=== PATIENT | female | born 1985 | race Caucasian/White ===

== ENCOUNTER 2020-02-14 08:28 | Outpatient (CLI) | payer MEDICAID ==
[2020-02-14 08:55] LABS: Hemoglobin 14.2 g/dL (12.0-16.0); Mean Corpuscular HGB CONC 33.8 g/dL (32.0-36.0); Mean Corpuscular Hemoglobin 30.8 pg (27.0-31.0); Mean Corpuscular Volume 91.1 fL (78.0-98.0); Mean Platelet Volume 6.8 fL (7.4-10.4); Platelet Count 270 thou/uL (130-400); RBC Distribution Width 11.2 % (11.5-14.5); Red Blood Cell (RBC) Count 4.61 mill/uL (4.20-5.40); White Blood Cell (WBC) Count 9.6 thou/uL (4.8-10.8)
[2020-02-14 09:19] LABS: ALT (SGPT) 21 U/L (8-55); AST (SGOT) 17 U/L (5-34); Albumin 4.3 g/dL (3.5-5.0); Alkaline Phosphatase 82 U/L (40-110); Anion Gap 11 mmol/L (10-20); BUN (Urea Nitrogen) 10 mg/dL (7.0-18.7); Bilirubin, Total 0.3 mg/dL (0.2-1.2); CRP (Inflammatory) Less than 0.50 mg/dL (= or < 0.5); Calc. Creatinine Clearance 0 mL/min (70-130); Calcium 9.4 mg/dL (7.8-10.44); Carbon Dioxide 27 mmol/L (22-29); Chloride 106 mmol/L (98-107); Estimated GFR-MDRD 85; Glucose 85 mg/dL (70-105); Potassium 4.3 mmol/L (3.5-5.1); Protein, Total 7.3 g/dL (6.0-8.3); Sodium 140 mmol/L (136-145)
[2020-02-14] MEDS ORDERED: Iopamidol 370 76% 100 ML VIAL ONE (10:34)
--- NOTE | 2020-02-14 12:22 | CT ---
EXAM: CT Abdomen Pelvis W WO con PROVIDED CLINICAL HISTORY: Chronic diarrhea. Worsening abdominal pain. COMPARISON: None FINDINGS: This examination was performed as an enterography protocol. The lung bases are clear. There is an irregular focus of enhancement seen posterior aspect of the liver seen on arterial phase of imaging which is not seen on portal venous phase and is likely related to transient hepatic arterial difference. The liver otherwise demonstrates a normal CT appearance. The spleen, pancreas, bilateral adrenal glands, kidneys, abdominal aorta, urinary bladder, and uterus demonstrate a normal CT appearance. There are focal areas of stricturing seen within loops of small bowel in the lower mid abdomen with m inimal adjacent infiltration of the fat immediately adjacent to the bowel in these regions. Bowel wall in these regions also appears mildly thickened. Findings may be related to inflammatory bowel di sease. The colon is distended and has a normal appearance. No free fluid, fluid collection, or lymphadenopathy seen in the abdomen or pelvis. Fat-containing umbilical hernia is seen. IMPRESSION: There are focal areas of stricturing and slight thickening of the bowel wall seen involving loops of the distal ileum in the mid and lower abdomen with adjacent minimal reticulation of the fat adjacent to these loops of bowel. Findings may be related to inflammatory bowel disease.
== END 2020-02-14 08:29 | disposition home or self-care (01) ==
LOC: CT 08:28
PROVIDERS: ATTEND Internal Medicine Gastroenterology
DX: K52.9 Noninfective gastroenteritis and colitis, unspecified (principal)
CPT/HCPCS: 36415; 74178; 80053; 85027; 86140; Q9967

== ENCOUNTER 2020-04-08 08:53 | Day surgery (SDC) | payer MEDICAID ==
[~2020-04-08 08:53] MED LIST: Acetaminophen 500 MG TAB PO PRN; INFLIXIMAB DYYB IV SCH; INFLIXIMAB DYYB IVPB SCH; SODIUM CHLORIDE 0.9% IV SCH; SODIUM CHLORIDE 0.9% IVPB SCH
[2020-04-08] MEDS ORDERED: diphenhydrAMINE 25 MG CAP PO PRN (08:54)
[2020-04-08] MEDS ORDERED: Sodium Chloride 0.9% 20 ML ONE (08:56)
[2020-04-08 09:43] VITALS: BP 124/82; TEMP 98.2
== END 2020-04-08 11:57 | disposition home or self-care (01) ==
LOC: ONC/OP 08:53
PROVIDERS: ATTEND Internal Medicine Gastroenterology
DX: K50.00 Crohn's disease of small intestine without complications (principal); K52.9 Noninfective gastroenteritis and colitis, unspecified; K21.9 Gastro-esophageal reflux disease without esophagitis; F41.9 Anxiety disorder, unspecified; F32.9 Major depressive disorder, single episode, unspecified; Z79.899 Other long term (current) drug therapy
CPT/HCPCS: 96413; 96415; J7050; Q0163; Q5103

== ENCOUNTER 2020-05-17 17:30 | Emergency (ER) | payer OTHER ==
[2020-05-17 18:51] LABS: #Basophils 0.1 thou/uL (0.0-0.2); #Eosinphils 0.1 thou/uL (0.0-0.7); #Lymphocytes 3.2 thou/uL (1.20-3.40); #Monocytes 0.7 thou/uL (0.11-0.59); #Neutrophils 3.7 thou/uL (1.40-6.50); %Basophils 1.5 % (0.0-1.0); %Eosinophils 1.4 % (0.0-10.0); %Lymphocytes 41.3 % (21.0-51.0); %Neutrophils 46.9 % (42.0-75.0); Hemoglobin 14.3 g/dL (12.0-16.0); Mean Corpuscular Hemoglobin 31.4 pg (27.0-31.0); Mean Corpuscular Volume 89.7 fL (78.0-98.0); Mean Platelet Volume 7.2 fL (7.4-10.4); Platelet Count 226 thou/uL (130-400); RBC Distribution Width 11.1 % (11.5-14.5); Red Blood Cell (RBC) Count 4.56 mill/uL (4.20-5.40); White Blood Cell (WBC) Count 7.8 thou/uL (4.8-10.8)
[2020-05-17] MEDS ORDERED: hydrOXYzine 25 MG TAB ONE (19:03)
[2020-05-17 19:12] LABS: BHCG - Serum Negative (NEGATIVE); Pregs Control Background? CLEAR/WHITE (CLR/WHITE); Pregs Control Bar Appear? YES (CONTROL BAR)
[2020-05-17 19:15] LABS: ALT (SGPT) 15 U/L (8-55); AST (SGOT) 17 U/L (5-34); Albumin 4.6 g/dL (3.5-5.0); Alkaline Phosphatase 71 U/L (40-110); Anion Gap 14 mmol/L (10-20); BUN (Urea Nitrogen) 8 mg/dL (7.0-18.7); Bilirubin, Total 0.5 mg/dL (0.2-1.2); CK (CPK) 66 U/L (29-168); Calc. Creatinine Clearance 0 mL/min (70-130); Calcium 9.2 mg/dL (7.8-10.44); Carbon Dioxide 24 mmol/L (22-29); Chloride 105 mmol/L (98-107); Estimated GFR-MDRD 84; Glucose 96 mg/dL (70-105); Magnesium 1.8 mg/dL (1.6-2.6); Protein, Total 7.6 g/dL (6.0-8.3); Sodium 139 mmol/L (136-145)
[2020-05-17 19:18] LABS: Bilirubin Negative (Negative); Blood, Urine Negative (Negative); Clarity Clear (Clear); Glucose, Urine (Dipstick) Normal (Negative); Ketone, Urine 10 mg/dL (Negative); Leukocyte Negative Leu/uL (Negative); Nitrite Negative (Negative); Protein, Urine (Dipstick) Negative (Neg-Trace); Urobilinogen Normal mg/dL (Less than 2); pH, Urine 6.5 (5.0-9.0)
[2020-05-17 19:30] LABS: Amphetamine Not Detected (NotDetected); Barbiturates Screen Not Detected (NotDetected); Benzodiazepine Screen Not Detected (NotDetected); Cocaine Metabolite Screen Not Detected (NotDetected); Medtox Control Line Valid? VALID (VALID); Medtox Reader # READER 1; Methadone Not Detected (NotDetected); Methamphetamine Not Detected (NotDetected); Opiate Screen Detected (NotDetected); Oxycodone Screen Not Detected (NotDetected); Phencyclidine (PCP) Not Detected (NotDetected); THC/Cannabinoid Screen Detected (NotDetected); Tricyclic Screen Not Detected (NotDetected)
--- NOTE | 2020-05-17 19:30 | CT ---
CT OF BRAIN PERFORMED WITHOUT CONTRAST ENHANCEMENT: History: Altered mental status, anxiety. FINDINGS: The ventricular and cisternal system is within normal limits. There are no signs of intracerebral hem orrhage or extraaxial fluid collections. Mastoid air cells and visualized sinuses are clear. IMPRESSION: No acute intracranial abnormalities. POS: OFF
--- NOTE | 2020-05-17 19:31 | RAD ---
PORTABLE CHEST ONE VIEW: Date: 05-17-2020 Time: 6:37 p.m. History: Weakness, hypoglycemia FINDINGS: The heart size is normal. The lungs are well expanded without lobar consolidation, pneumothoraces or pleural effusions. IMPRESSION: No radiographic evidence of acute cardiopulmonary process. POS: MARGIE
== END 2020-05-17 20:54 | disposition home or self-care (01) ==
LOC: ERS 17:30
DX: F41.9 Anxiety disorder, unspecified (principal); K50.90 Crohn's disease, unspecified, without complications; F12.90 Cannabis use, unspecified, uncomplicated; F11.90 Opioid use, unspecified, uncomplicated; F90.9 Attention-deficit hyperactivity disorder, unspecified type
CPT/HCPCS: 36415; 70450; 71045; 80053; 80306; 81003; 82550; 83735; 84439; 84443; 84484; 84703; 85025; 93005; 96360

== ENCOUNTER 2020-05-20 09:13 | Day surgery (SDC) | payer OTHER ==
[~2020-05-20 09:13] MED LIST changes: +Acetaminophen 325 MG TAB PO SCH; -Acetaminophen 500 MG TAB PO PRN; -INFLIXIMAB DYYB IV SCH; -SODIUM CHLORIDE 0.9% IV SCH; +diphenhydrAMINE 50 MG/ML VIAL IVP SCH
[2020-05-20] MEDS ORDERED: Sodium Chloride 0.9% 20 ML ONE (09:16)
[2020-05-20 09:34] VITALS: BP 137/80; TEMP 98
== END 2020-05-20 12:18 | disposition home or self-care (01) ==
LOC: ONC/OP 09:13
PROVIDERS: ATTEND Internal Medicine Gastroenterology
DX: K50.00 Crohn's disease of small intestine without complications (principal); K62.9 Disease of anus and rectum, unspecified
CPT/HCPCS: 96376; 96413; 96415; J1200; J7050; Q5103

== ENCOUNTER 2020-05-27 14:47 | Emergency (ER) | payer OTHER ==
[2020-05-27] MEDS ORDERED: Iopamidol-370 76% 500 ML 1 ML ONE (15:30)
[2020-05-27 16:00] LABS: ALT (SGPT) 13 U/L (8-55); AST (SGOT) 18 U/L (5-34); Albumin 4.9 g/dL (3.5-5.0); Alkaline Phosphatase 82 U/L (40-110); Anion Gap 15 mmol/L (10-20); BUN (Urea Nitrogen) 8 mg/dL (7.0-18.7); Bilirubin, Total 0.4 mg/dL (0.2-1.2); Calc. Creatinine Clearance 0 mL/min (70-130); Calcium 9.3 mg/dL (7.8-10.44); Carbon Dioxide 21 mmol/L (22-29); Chloride 106 mmol/L (98-107); Estimated GFR-MDRD 80; Globulin 3.3 g/dL (2.4-3.5); Glucose 90 mg/dL (70-105); Potassium 4.9 mmol/L (3.5-5.1); Protein, Total 8.2 g/dL (6.0-8.3); Sodium 137 mmol/L (136-145)
[2020-05-27 16:05] LABS: Acetaminophen Less than 6.0 mcg/mL (10.0-30.0); Alcohol Less than 10 mg/dL (Less than 10); Salicylate Less than 8.0 mg/dL (15.0-30.0)
[2020-05-27 16:08] LABS: Band 1 % (5-11); Eosinophils 3 % (0-10); Hemoglobin 15.1 g/dL (12.0-16.0); Lymphocytes 39 % (21-51); MDiff Complete? YES; Mean Corpuscular HGB CONC 35.6 g/dL (32.0-36.0); Mean Corpuscular Volume 89.9 fL (78.0-98.0); Mean Platelet Volume 7.7 fL (7.4-10.4); Monocytes 7 % (0-10); Neutrophil 38 % (42-75); Platelet Count 220 thou/uL (130-400); Platelet Morphology Comment Appears Adequate; Polychromasia SLIGHT = 2-3 cells (100X) (0-2/hpf); RBC Distribution Width 11.1 % (11.5-14.5); Reactive Lymphocytes 12 % (0-10); Red Blood Cell (RBC) Count 4.72 mill/uL (4.20-5.40); White Blood Cell (WBC) Count 8.3 thou/uL (4.8-10.8)
[2020-05-27 16:44] LABS: Bilirubin Negative (Negative); Blood, Urine Negative (Negative); Clarity Clear (Clear); Glucose, Urine (Dipstick) Normal (Negative); Ketone, Urine Negative (Negative); Leukocyte Negative Leu/uL (Negative); Nitrite Negative (Negative); Protein, Urine (Dipstick) Negative (Neg-Trace); Specific Gravity, Urine 1.007 (1.002-1.036); Urobilinogen Normal mg/dL (Less than 2)
[2020-05-27 16:46] LABS: Pregnancy Test - Urine (BHCG) Negative (Negative); Pregu Control Background? CLEAR/WHITE (CLR/WHITE); Pregu Control Bar Appear? YES (CONTROL BAR); Specific Gravity 1.007 (1.002-1.036)
[2020-05-27 17:01] LABS: Amphetamine Not Detected (NotDetected); Barbiturates Screen Not Detected (NotDetected); Benzodiazepine Screen Not Detected (NotDetected); Cocaine Metabolite Screen Not Detected (NotDetected); Medtox Control Line Valid? VALID (VALID); Medtox Reader # READER 4; Methadone Not Detected (NotDetected); Methamphetamine Not Detected (NotDetected); Opiate Screen Not Detected (NotDetected); Oxycodone Screen Not Detected (NotDetected); Phencyclidine (PCP) Not Detected (NotDetected); THC/Cannabinoid Screen Detected (NotDetected); Tricyclic Screen Not Detected (NotDetected)
--- NOTE | 2020-05-27 17:14 | RAD ---
XR Chest 1 View Portable HISTORY: Tachycardia, dyspnea COMPARISON: 05/17/2020 FINDINGS: The heart size is normal. The lungs are well expanded without focal areas of consolidation, pneumothorax or pleural effusions. IMPRESSION: No radiographic evidence of acute cardiopulmonary process.
[2020-05-27] MEDS ORDERED: Lorazepam 2 MG/ML VIAL ONE (17:29)
--- NOTE | 2020-05-27 18:40 | CT ---
CT PULMONARY ANGIOGRAM WITH IV CONTRAST AND 3D POSTPROCESSIN05/27/20 HISTORY: Shortness of breath, elevated D-dimer, palpitations. FINDINGS: there is good contrast opacification of the pulmonary arterial vasculature without filling defect to suggest pulmonary embolism. The thoracic aorta is well opacified without aneurysmal dissection. No pl eural or pericardial effusions are seen. No pneumothoraces, focal areas of consolidation, or lung masses identified. There is a well circumscribed solid 5 mm nodule in the left lower lobe. In a low risk patient, no fol low-up is necessary. In a high risk patient, a 12 month follow-up CT scan should be performed. Upper abdominal tomograms are unremarkable. There are mild degenerative changes in the spine. IMPRESSION: No CT evidence of pulmonary embolism. POS: MARGIE
== END 2020-05-27 19:27 | disposition home or self-care (01) ==
LOC: ERS 14:47
DX: F43.0 Acute stress reaction (principal); R00.2 Palpitations; F41.9 Anxiety disorder, unspecified; Z79.899 Other long term (current) drug therapy
CPT/HCPCS: 71045; 71275; 80053; 80306; 80307; 81003; 81025; 83605; 84443; 84484; 85025; 85379; 93005; 96374; J2060; Q9967

== ENCOUNTER 2020-07-20 06:28 | Outpatient (CLI) | payer OTHER ==
[2020-07-20 10:30] LABS: BHCG - Serum Negative (NEGATIVE); Pregs Control Background? CLEAR/WHITE (CLR/WHITE); Pregs Control Bar Appear? YES (CONTROL BAR)
[2020-07-21 10:24] LABS: SARS-CoV-2 MS2 Positive; SARS-CoV-2 N Gene Negative; SARS-CoV-2 S Gene Negative; SARS-CoV-2 by NAA Not Detected (NotDetected); SARS-CoV-2 orf1ab Negative
== END 2020-07-20 06:29 | disposition home or self-care (01) ==
LOC: LABBT 06:28
PROVIDERS: ATTEND Specialist
DX: Z01.812 Encounter for preprocedural laboratory examination (principal); J34.2 Deviated nasal septum; J34.3 Hypertrophy of nasal turbinates; Z20.828 Contact with and (suspected) exposure to other viral communicable diseases
CPT/HCPCS: 84703; 85014; 87635; U0003

== ENCOUNTER 2020-07-23 09:09 | Day surgery (SDC) | payer OTHER ==
[2020-07-21 11:10] VITALS: BMI 25.3
[2020-07-23] MEDS ORDERED: Ondansetron PF 4 MG/2 ML Vial ONE (09:12)
[2020-07-23] MEDS ORDERED: PROPOFOL 200 MG/20 ML VIAL ONE (09:12)
[2020-07-23] MEDS ORDERED: Lidocaine 1% PF 5 ML VIAL ONE (09:12)
[2020-07-23] MEDS ORDERED: Dexamethasone 20 MG/5 ML VIAL ONE (09:12)
[2020-07-23] MEDS ORDERED: AFRIN NASAL MIST 15 ML BOT ONE ×2 (09:24→09:36)
[2020-07-23] MEDS ORDERED: Lidocaine 1% w/Epinephrine 1:100K 20 ML VIAL ONE (09:36)
[2020-07-23] MEDS ORDERED: Bacitracin Zinc Ointment 30 gm TUBE ONE (09:36)
[2020-07-23] MEDS ORDERED: EPINEPHrine 1 MG/10 ML Abboject SYRINGE ONE (09:36)
[2020-07-23] MEDS ORDERED: EPINEPHrine 1 MG/ML AMP ONE (09:37)
[2020-07-23] MEDS ORDERED: Fentanyl 100 MCG/2 ML VIAL ONE (09:38)
[2020-07-23] MEDS ORDERED: Midazolam HCl 2 mg/2 ml Vial ONE (09:55)
[2020-07-23] MEDS ORDERED: Meperidine HCl/PF 25 MG/ML VIAL ONE (11:22)
[2020-07-23] MEDS ORDERED: HYDROcodone/Acetaminophen 5/325 mg Tablet ONE (12:21)
--- NOTE | 2020-07-24 06:20 | OP ---
DATE OF PROCEDURE: 07/23/2020 PREOPERATIVE DIAGNOSES: 1. Profound septal deformity. 2. Hypertrophic inferior turbinates. POSTOPERATIVE DIAGNOSES: 1. Profound septal deformity. 2. Hypertrophic inferior turbinates. PROCEDURES PERFORMED: 1. Septoplasty. 2. Bilateral nasal endoscopy with submucosal resection of inferior turbinates. PROCEDURE IN DETAIL: SEPTOPLASTY: After local anesthesia was infiltrated into the submucoperichondrial plane, a standard [place] incision was made with a #15 blade down to the level of the septal cartilage. The caudal elevator was used to elevate the mucoperichondrium from the underlying cartilage. We then proceeded beyond the bony cartilaginous junction and elevated the bony periosteum as well. Great attention was paid to the spur to prevent rent formation in the septal flap. A transcartilaginous incision was then made, while preserving an adequate dorsal and caudal cartilaginous strut for tip support. The deformed cartilage was removed and disarticulated from the bony cartilaginous junction and maxillary crest. This was placed in saline and would later be crushed and returned to the mucoperichondrial envelope. We then elevated the contralateral periosteum from the bony cartilaginous region and removed the deformed portions of the bone and bony spurs. The cartilage was then crushed and placed back into the mucoperichondrial envelope and the mucosa was re-approximated with a quilting stitch composed of rapidly absorbent gut suture. The [place] incision was also closed with interrupted gut suture. At the completion of the case, [place]donado splints were placed and suture secured to the caudal septum. BILATERAL NASAL ENDOSCOPY WITH SUBMUCOSAL RESECTION OF INFERIOR TURBINATES: After consent was obtained, the patient was identified, brought to the operating room, and placed on the operating room table in the supine position. Consent was obtained, notifying the patient of the possibility of additional infections, bleeding, brain injury, and eye/orbital injury. The patient was placed on the operating room table, and general endotracheal anesthesia and intravenous access was obtained. The patient was then positioned, prepped and draped for endoscopic sinus surgery. Nasal preparation included trimming nasal vestibular hairs and spraying in topical Afrin. We then placed Afrin topical solution on nasal pledgets and strategically located them intranasally. The perinasal mucosa was injected with 1% lidocaine with 1:100,000 epinephrine in the submucoperichondrial plane of the septum, lateral nasal wall, and anterior to the uncinate. The patient was then prepped and draped in a sterile fashion and positioned for endoscopic sinus surgery. With the 0-degree endoscope, the patient underwent systematic nasal endoscopy. There were no suspicious internasal masses or lesions identified. We then focused our attention to the osteomeatal complex region under the middle turbinate. The inferior turbinates were visualized with a 0 degree endoscope and outfractured with a [place] elevator. The inferior medial aspect was cauterized with the electrocautery. Hemostasis was obtained . After adequate airway was established, we turned our attention to the contralateral side and used a similar procedure. Again, a [place] elevator was used to outfracture inferior turbinates under endoscopic visualization. With a suction cautery, the free inferior medial aspect was cauterized under direct visualization along the length of the inferior turbinate. At this point, we then turned our attention to the contralateral side and proceeded with endoscopic sinus surgery. At the completion of the case, [place] keel splints were placed in the ethmoid cavities after the ethmoidectomy. There were no complications. The patient tolerated the procedure well and was discharged to the recovery room in stable condition prior to return to the preoperative day stay with ultimate discharge home. Prescriptions for pain medication and antibiotics were provided. The patient received intramuscular Depo-Medrol during the case. Job ID: [id number]
== END 2020-07-23 13:40 | disposition home or self-care (01) ==
LOC: SDC 09:09
PROVIDERS: ATTEND Specialist
PROC: 09BL8ZZ Excision of Nasal Turbinate, Via Natural or Artificial Opening Endoscopic (ICD-10-PCS; principal; 2020-07-23)
PROC: 09BM8ZZ Excision of Nasal Septum, Via Natural or Artificial Opening Endoscopic (ICD-10-PCS; principal; 2020-07-23)
DX: J34.2 Deviated nasal septum (principal); J34.3 Hypertrophy of nasal turbinates; F41.9 Anxiety disorder, unspecified; F32.9 Major depressive disorder, single episode, unspecified; K50.90 Crohn's disease, unspecified, without complications; Z79.899 Other long term (current) drug therapy
CPT/HCPCS: J0171; J1100; J2175; J2250; J2405; J2704; J3010

== ENCOUNTER 2020-07-31 09:13 | Day surgery (SDC) | payer OTHER ==
[2020-07-31] MEDS ORDERED: Sodium Chloride 0.9% 20 ML ONE (09:29)
[2020-07-31] MEDS ORDERED: INFLIXIMAB DYYB IVPB SCH (09:30)
[2020-07-31] MEDS ORDERED: SODIUM CHLORIDE 0.9% IVPB SCH (09:30)
[2020-07-31 14:19] VITALS: BP 119/68; TEMP 98.6
== END 2020-07-31 14:19 | disposition home or self-care (01) ==
LOC: ONC/OP 09:13
PROVIDERS: ATTEND Internal Medicine Gastroenterology
DX: K50.00 Crohn's disease of small intestine without complications (principal)
CPT/HCPCS: 96375; 96413; 96415; J1200

== ENCOUNTER 2021-05-27 10:18 | Outpatient (CLI) | payer OTHER | END 2021-05-27 10:19 | disposition home or self-care (01) | LOC: BICRAD 10:18 | PROVIDERS: ATTEND Internal Medicine Pulmonary Disease | DX: R06.00 Dyspnea, unspecified (principal) | CPT/HCPCS: 71046 ==

== ENCOUNTER 2021-07-05 19:00 | Outpatient (CLI) | payer OTHER | END 2021-07-05 19:01 | disposition home or self-care (01) | LOC: SLEEPLAB 19:00 | PROVIDERS: ATTEND Internal Medicine Pulmonary Disease | DX: G47.10 Hypersomnia, unspecified (principal); G47.9 Sleep disorder, unspecified; G47.33 Obstructive sleep apnea (adult) (pediatric); R53.83 Other fatigue; F31.9 Bipolar disorder, unspecified; R06.83 Snoring; F41.9 Anxiety disorder, unspecified; M79.7 Fibromyalgia; G43.909 Migraine, unspecified, not intractable, without status migrainosus; F84.0 Autistic disorder; G47.00 Insomnia, unspecified; F90.9 Attention-deficit hyperactivity disorder, unspecified type | CPT/HCPCS: 95810 ==

== ENCOUNTER 2022-04-18 14:11 | Outpatient (CLI) | payer OTHER | END 2022-04-18 14:12 | disposition home or self-care (01) | LOC: EEG 14:11 | PROVIDERS: ATTEND Psychiatry & Neurology Neurology | DX: F44.9 Dissociative and conversion disorder, unspecified (principal) | CPT/HCPCS: 95816; 95957 ==

== ENCOUNTER 2022-05-11 11:36 | Emergency (ER) | payer OTHER ==
[2022-05-11] MEDS ORDERED: Prochlorperazine 10 MG/2 ML VIAL ONE (13:29)
[2022-05-11] MEDS ORDERED: Ketorolac Tromethamine 30 MG/ML VIAL ONE (13:29)
== END 2022-05-11 14:45 | disposition home or self-care (01) ==
LOC: ERS 11:36
DX: G43.909 Migraine, unspecified, not intractable, without status migrainosus (principal); E78.5 Hyperlipidemia, unspecified; Z79.899 Other long term (current) drug therapy
CPT/HCPCS: 96374; 96375; J0780; J1885

== ENCOUNTER 2024-08-15 09:05 | Outpatient (CLI) | payer OTHER | END 2024-08-15 09:06 | disposition home or self-care (01) | LOC: CT 09:05 | PROVIDERS: ATTEND Specialist | DX: J34.1 Cyst and mucocele of nose and nasal sinus (principal) ==